=== PATIENT | female | born 1970 | race Caucasian/White ===

== ENCOUNTER 2022-09-26 10:59 | Outpatient (CLI) | payer BC, SELFPAY ==
[2022-09-26 11:15] LABS: Basophils Absolute Auto 0.08 K/mm3 (0.00-0.10); Basophils Percent Auto 1.1 % (0.0-1.0); Eosinophils Absolute Auto 0.11 K/mm3 (0.02-0.50); Eosinophils Percent Auto 1.5 % (1.0-6.0); Hematocrit 41.5 % (35.0-49.0); Immature Granulocyte Absolute 0.02 K/mm3 (0.00-0.00); Immature Granulocyte Percent A 0.3 % (0.0-0.0); Lymphocytes Absolute Auto 1.43 K/mm3 (1.10-4.50); Lymphocytes Percent Auto 19.8 % (18.0-42.0); Mean Corpuscular HGB Conc 33.7 g/dL (32.0-36.0); Mean Corpuscular Hemoglobin 30.8 pg (27.0-31.0); Mean Corpuscular Volume 91.2 fL (78.0-102.0); Mean Platelet Volume 9.1 fl (9.2-11.8); Monocytes Absolute Auto 0.33 K/mm3 (0.10-0.90); Monocytes Percent Auto 4.6 % (2.0-11.0); Neutrophils Absolute Auto 5.2 K/mm3 (1.7-7.2); Neutrophils Percent Auto 72.7 % (50.0-70.0); Platelet Count Result 349 K/mm3 (150-420); Red Blood Count 4.55 M/mm3 (4.20-5.40); Red Cell Distribution Width 12.7 % (11.6-14.4); White Blood Count 7.2 K/mm3 (4.8-10.8)
[2022-09-26 12:14] LABS: Free T4 Free Thyroxine 0.95 ng/dL (0.76-1.46); Iron 59 ug/dL (50-170); Magnesium 2.2 mg/dL (1.8-2.4); Thyroid Stimulating Hormone 0.54 uIU/mL (0.36-3.74); Vitamin B12 891 pg/mL (193-986)
[2022-09-30 19:51] LABS: Vitamin D 25 Hydroxy 17 ng/mL (30-100)
== END 2022-09-26 11:00 | disposition home or self-care (01) ==
PROVIDERS: PCP Nurse Practitioner Family; Visit Provider Nurse Practitioner Family
DX: R53.83 Other fatigue (principal); Z79.899 Other long term (current) drug therapy
CPT/HCPCS: 36415; 82306; 82607; 83540; 83735; 84439; 84443; 85025

== ENCOUNTER 2023-05-02 16:30 | Emergency (ER) | payer BC, SELFPAY ==
--- NOTE | ~2023-05-02 | XR_ITS ---
EXAMINATION: XR chest 1V portable DATE: 05/02/2023 17:26 INDICATION: Heart palpitations. Left arm numbness and tingling. TECHNIQUE: A single frontal view of the chest was obtained. COMPARISON: None. FINDINGS: There is mild atelectasis at left lung base. No pleural effusion or pneumothorax. The heart size is normal. IMPRESSION: 1. Mild atelectasis at left lung base. Reviewed, dictated and finalized at location E. REGISTER MECHANIC
[2023-05-02 16:32] VITALS: BP 176/90; PULSE 83; RESP 18; TEMP 37; O2SAT 97
[2023-05-02 16:35] VITALS: PULSE 85
--- NOTE | 2023-05-02 17:10 | ECG_ITS ---
Measurements Intervals [place] Rate: 85 P: 55 NC: 157 QRS: 53 QRSD: 87 T: 53 QT: 379 QTc: 452 Interpretive Statements SINUS RHYTHM POSSIBLE LEFT ATRIAL ENLARGEMENT INCOMPLETE RIGHT BUNDLE BRANCH BLOCK BORDERLINE T WAVE ABNORMALITY- ANTERIOR LEADS BORDERLINE ECG NO PREVIOUS ECG AVAILABLE FOR COMPARISON Electronically Signed On 05-02-2023 19:25:31 DIRECTOR OF CONVENTION SERVICES by Karson Luis D.O.
--- NOTE | 2023-05-02 17:12 | ED.CHESTPAIN ---
HPI - Chest Pain General Chief Complaint: Chest Pain Stated Complaint: chest palpations Time Seen by Provider: 05/02/23 17:05 Source: patient Mode of arrival: ambulatory Limitations: no limitations History of Present Illness HPI narrative: Patient is a 53-year-old female with significant past medical history presents today with chest pain. Patient has had palpitations and chest pain starting earlier this afternoon. She states that she has never had this in the past. She denies any history of cardiac problems. She does take hydrochlorothiazide for hypertension. She denies any other symptoms. She is not currently having any chest pain or the fluttering. MD complaint: chest pain Onset (ago): hour(s) Timing of current episode: now resolved Prior episodes: No Onset: other Pain location: substernal Pain radiation: none Severity: mild Pain scale (0-10): 1 Relieving factors: nothing Exacerbating factors: nothing Associated symptoms: nausea Risk Factors Coronary artery disease risk factors: hypertension Thoracic aortic dissection risk factors: none Related Data Allergies Allergy/AdvReac Type Severity Reaction Status Date / Time Penicillins Allergy Intermediate Rash Verified 05/02/23 08:26 Review of Systems Review of Systems: All systems reviewed & are unremarkable except as noted in HPI and below Constitutional: Constitutional: Reports no additional constitutional complaints Eyes: Eyes: Reports no additional eye complaints ENT: Reports system reviewed and no additional complaints, except as documented Cardiovascular: Cardiovascular: Reports no additional cardiovascular complaints Respiratory: Respiratory: Reports no additional respiratory complaints Gastrointestinal: Gastrointestinal: Reports no additional gastrointestinal complaints Genitourinary: Genitourinary: Reports no additional female genitourinary complaints Musculoskeletal: Musculoskeletal: Reports no additional musculoskeletal complaints Integumentary/Breasts: Skin/Breast: Reports system reviewed and no additional complaints, except as docu Neurologic: Reports system reviewed and no additional complaints, except as documented Psychiatric: Psychiatric: Reports no additional psychiatric complaints Endocrine: Endocrine: Reports no additional endocrine complaints Hematologic/Lymphatic: Hematologic/Lymphatic: Reports no additional hematologic/lymphatic complaints [facility] Past Medical History Medical History Depression Surgical History Surgical History History of appendectomy Hx of cholecystectomy Family History Family History Father , hyperlipidemia Hypertension Mother Hypertension Social History Social History Smoking status: Never smoker Alcohol intake: current Alcohol use details: socially Substance use: never Substance use type: does not use Lack of Transportation: No Lack of Food: Never True Current Housing: I Have Housing Concerned About Future Housing: No Difficulty Paying Gas/Electric Bills: No Difficulty Paying for Meds: No Currently Unemployed: No Education: Associate Degree Difficulty w/ Childcare or Family Care: No Living arrangements: with family Occupation/Education: occupation Additional occupation/education comments: works for [employer] Exam Const: General: healthy appearing Nutritional Appearance: well nourished Orientation/consciousness: patient oriented x3 HENMT: Head: normal to inspection Ears: external ears normal Face/Nose/Sinus: Normal external nose present Face and sinus: normal facial exam Mouth: Yes Normal oral and palatal mucosa present Eyes: Conjunctivae: conjunctivae normal Pupils: Equal, round and reactive pupils present EOM: EOMs intact bilateral
[2023-05-02 17:25] LABS: Basophils Absolute Auto 0.08 K/mm3 (0.00-0.10); Basophils Percent Auto 0.8 % (0.0-1.0); Eosinophils Absolute Auto 0.38 K/mm3 (0.02-0.50); Hematocrit 41.6 % (35.0-49.0); Hemoglobin 13.9 g/dL (12.0-15.0); Immature Granulocyte Absolute 0.04 K/mm3 (0.00-0.00); Immature Granulocyte Percent A 0.4 % (0.0-0.0); Lymphocytes Absolute Auto 1.77 K/mm3 (1.10-4.50); Lymphocytes Percent Auto 18.4 % (18.0-42.0); Mean Corpuscular HGB Conc 33.4 g/dL (32.0-36.0); Mean Corpuscular Hemoglobin 30.5 pg (27.0-31.0); Mean Corpuscular Volume 91.4 fL (78.0-102.0); Mean Platelet Volume 9.1 fl (9.2-11.8); Monocytes Absolute Auto 0.55 K/mm3 (0.10-0.90); Monocytes Percent Auto 5.7 % (2.0-11.0); Neutrophils Absolute Auto 6.8 K/mm3 (1.7-7.2); Neutrophils Percent Auto 70.7 % (50.0-70.0); Platelet Count Result 340 K/mm3 (150-420); Red Blood Count 4.55 M/mm3 (4.20-5.40); Red Cell Distribution Width 12.7 % (11.6-14.4); White Blood Count 9.6 K/mm3 (4.8-10.8)
[2023-05-02] MEDS: ASPIRIN 81 MG CHEWABLE TABLET 324 MG PO (17:41)
[2023-05-02 17:52] LABS: Partial Thromboplastin Time 29.6 SEC (23.90-30.70); Prothrombin Time 10.5 Seconds (9.50-12.10)
[2023-05-02 17:54] LABS: Alanine Aminotransferase 35 U/L (14-59); Albumin Level 3.7 g/dL (3.4-5.0); Alkaline Phosphatase 111 U/L (46-116); Anion Gap 1 mmol/L (8-16); Aspartate Amino Transferase 19 U/L (15-37); Bilirubin,Total 0.5 mg/dL (0.00-1.00); Blood Urea Nitrogen 12 mg/dL (7-18); Calcium 9.4 mg/dL (8.5-10.1); Carbon Dioxide 40 mmol/L (21-32); Chloride 103 mmol/L (98-108); Estimated CRCL calculation 58 ml/min; Estimated Glomerular Filt Rate > 60; Glucose 91 mg/dL (70-99); Lipase 34 U/L (16-77); NT Pro B Type Natriuretic Pept 44 pg/mL (0-125); Osmolality Calculated 297 mOsm/kg (285-295); Potassium 3.1 mmol/L (3.5-5.1); Sodium 144 mmol/L (136-145)
[2023-05-02 17:57] LABS: Troponin I 6.2 ng/L (0.00-60.4)
[2023-05-02 18:03] LABS: D Dimer 0.19 mg/L (0.19-0.50)
[2023-05-02] MEDS: POTASSIUM CHLORIDE 20 MEQ ER TABLET 40 MEQ PO (18:12)
[2023-05-02 18:29] VITALS: BP 131/70; PULSE 81; RESP 18; TEMP 36.4; O2SAT 98
[2023-05-02 18:40] VITALS: BP 151/86; PULSE 83; RESP 20; TEMP 36.7; O2SAT 98
[2023-05-02 18:53] VITALS: O2SAT 98
== END 2023-05-02 18:59 | disposition home or self-care (01) ==
PROVIDERS: Emergency Provider Family Medicine; PCP Nurse Practitioner Family
DX: R00.2 Palpitations (principal); I10 Essential (primary) hypertension; E78.5 Hyperlipidemia, unspecified; Z79.899 Other long term (current) drug therapy
CPT/HCPCS: 36415; 71045; 80053; 83690; 83880; 84484; 85025; 85380; 85610; 85730; 93005; 99284; A9270

== ENCOUNTER 2023-05-27 10:59 | Outpatient (CLI) | payer BC, SELFPAY ==
--- NOTE | ~2023-05-27 | XR_ITS ---
EXAM: XR lumbar spine 2-3V DATE: 05/27/2023 11:18 HISTORY: RT low back pain radiates down X 2 weeks, NKI . COMPARISON: None available. FINDINGS: Cholecystectomy clips. 5 nonrib-bearing lumbar-type vertebral bodies. Pedicles intact. 2 m m retrolistheses at L2-3 and L3-4. Trace anterolisthesis at L4-5. Vertebral body heights preserved. M ultilevel mild disc space narrowing and marginal osteophytosis. Multilevel mild facet sclerosis and h ypertrophy. Suggestion of a linear defect in the L5 pars articularis. No fracture or dislocation. IMPRESSION: Grade 1 retrolistheses at L2-3 and L3-4. Trace grade 1 anterolisthesis at L4-5. Multileve l mild degenerative disc disease and facet arthropathy. Possible pars defects at L5, consider oblique radiographs of the lumbar spine for confirmation. Reviewed, dictated and finalized at location K. [facility] IMPRESSION: Grade 1 retrolistheses at L2-3 and L3-4. Trace grade 1 anterolisthe sis at L4-5. Multilevel mild degenerative disc disease and facet arthropathy. P ossible pars defects at L5, consider oblique radiographs of the lumbar spine fo r confirmation.
== END 2023-05-27 11:00 | disposition home or self-care (01) ==
LOC: CHSLAB 11:02
PROVIDERS: PCP Nurse Practitioner Family; Visit Provider Nurse Practitioner Family
DX: M54.50 Low back pain, unspecified (principal); M43.16 Spondylolisthesis, lumbar region; M51.36 Other intervertebral disc degeneration, lumbar region
CPT/HCPCS: 72100

== ENCOUNTER 2023-05-30 10:26 | Outpatient (CLI) | payer BC, SELFPAY ==
--- NOTE | ~2023-05-30 | XR_ITS ---
EXAMINATION: XR lumbar spine 6V w bending DATE: 05/30/2023 11:02 INDICATION: Right-sided low back pain radiating to the right leg. TECHNIQUE: 7 views of lumbar spine including flexion and extension views were obtained. COMPARISON: Lumbar spine radiographs 05/27/2023 FINDINGS: There is 4 degrees dextrocurvature of lumbar spine. There is 3 mm retrolisthesis of L2 on L 3. Vertebral body heights are normal. There is no pars defect. There is mildly decreased disc height at L2-L3 and L4-L5. There is no abnormal motion with flexion or extension. There are endplate osteoph ytes at most levels. There is multilevel facet joint osteoarthritis, severe bilaterally at L4-L5 and L5-S1. IMPRESSION: 1. Mild lumbar spondylosis. Reviewed, dictated and finalized at location E. CEMENTER IMPRESSION: 1. Mild lumbar spondylosis.
== END 2023-05-30 10:27 | disposition home or self-care (01) ==
LOC: CHSIMG 10:27
PROVIDERS: PCP Family Medicine; Visit Provider Nurse Practitioner Family
DX: R93.7 Abnormal findings on diagnostic imaging of other parts of musculoskeletal system (principal); M54.50 Low back pain, unspecified; M43.06 Spondylolysis, lumbar region
CPT/HCPCS: 72114

== ENCOUNTER 2023-06-02 15:50 | Outpatient (RCR) | payer BC, SELFPAY ==
--- NOTE | 2023-06-02 17:06 | OPREHPOC ---
Outpatient Therapy Plan of Care This is a Multidisciplinary Plan of Care that may contain components documented by all disciplines (PT, OT, and ST.) PT Problem 1 PT Problem #1 Knowledge Deficit PT Goal 1 Goal Patient to demonstrate independence with HEP Target Visit 5 PT Problem 2 PT Problem #2 Pain PT Goal 1 Goal 1. Patient to report highest pain at 1/10 2. Patient to report sleep disturbance due to low back and hip pain Target Visit 10 PT Problem 3 PT Problem #3 Impaired Range of Motion PT Goal 1 Goal Patient to demonstrate 90 deg of R hip flexion to improve ability to sit for prolonged periods Target Visit 10 PT Problem 4 PT Problem #4 Impaired Strength PT Goal 1 Goal Patient to demonstrate 4+/5 strength of B LE to return to prolonged ambulation at PLOF Target Visit 10 PT Problem 5 PT Problem #5 Impaired Functional Mobil PT Goal 1 Target Visit 10
--- NOTE | 2023-06-02 17:06 | PTOPEVAL1 ---
Assessment and note entered by Nuha Richter DPT Evaluation Information Assessment Status Evaluation Diagnosis low back pain Onset 05/27/23 Subjective Information Patient reports she has had low back pain for the last 2 weeks with no injury. She reports pain starts at the low back and radiates to R hip and into groin. She reports pain has remained about the same since start. She reports she got an injection that did not help. She reports that she enjoys walking but is unable to now due to pain. She has also has difficulty with standing in one place, sitting at her desk and sleeping. She is to return to MD after PT. Reported Pain Level Pain Score 6,6: Self Report Assessment PT Clinical Summary Patient is a 53 year old female who presents to PT with low back and radiating pain to R LE. Patient demonstrates decreased B LE strength, decreased R hip mobility, and decreased lumbar mobility impairing her ability to ambulate prolonged ambulation, sitting at her desk for work, and standing to complete house hold tasks. Patient would benefit from skilled PT to address impairments and return to PLOF. Plan of Care Interventions Electrical Stimulation,Gait Training,Hot Pack/Cold Pack,Manual Therapy,Mechanical Traction,Neuro Re- education,Patient/Caregiver Educati,Therapeutic Activities,Therapeutic Exercise PT Services Indicated Yes Treatment Frequency and 2x weekly for 10 visits Duration These treatments will address the objective and functional deficits as defined above. The patient will be advanced safely and appropriately in order for the patient to progress towards his/her prior level of function. Additional exercises will be introduced and as well as a comprehensive home exercise program upon discharge, if needed, ?to ensure carryover of functional gains achieved in the clinic. This treatment plan has been reviewed and agreement upon by the patient.
--- NOTE | 2023-09-25 14:34 | PCPTNOTE ---
patient DC from PT and is following up with surgeon with regard to hip replacement
== END 2023-06-19 20:00 | disposition home or self-care (01) ==
LOC: CHSPT 15:50
PROVIDERS: PCP Family Medicine; Visit Provider Nurse Practitioner Family
DX: M54.50 Low back pain, unspecified (principal)
CPT/HCPCS: 97014; 97110; 97140; 97161; G0283

== ENCOUNTER 2024-04-06 09:49 | Outpatient (CLI) | payer BC, SELFPAY ==
--- NOTE | ~2024-04-06 | XR_ITS ---
EXAMINATION: XR chest 2V DATE: 04/06/2024 16:11 INDICATION: Chest pain. Palpitations. Wheezing. TECHNIQUE: Frontal and lateral views of the chest were obtained. COMPARISON: Chest single view 05/02/2023 FINDINGS: There is no pneumonia, pleural effusion, or pneumothorax. The heart size is normal. There a re surgical clips in the abdomen. IMPRESSION: 1. No acute cardiopulmonary disease. Reviewed, dictated and finalized at location A.
--- NOTE | 2024-04-06 10:00 | ECG_ITS ---
Test Date: 2024-04-06 10:09:37 Measurements Intervals [place] Rate: 82 P: 77 ID: [id number] QRS: 58 QRSD: 96 T: 78 QT: 390 QTc: 457 Interpretive Statements SINUS RHYTHM INCOMPLETE RIGHT BUNDLE BRANCH BLOCK [90+ ms QRS DURATION, TERMINAL R IN V1/V2, 40+ ms S IN I/aVL/V4/V5/V6] NONSPECIFIC ST & T-WAVE ABNORMALITY No previous ECG available for comparison Electronically Signed On 04-06-2024 11:58:21 CDT by Patrick Anderson M.D.
[2024-04-06 10:01] LABS: Basophils Absolute Auto 0.05 K/mm3 (0.00-0.10); Eosinophils Absolute Auto 0.19 K/mm3 (0.02-0.50); Eosinophils Percent Auto 3.9 % (1.0-6.0); Hematocrit 42.4 % (35.0-49.0); Hemoglobin 13.9 g/dL (12.0-15.0); Immature Granulocyte Absolute 0.03 K/mm3 (0.00-0.00); Immature Granulocyte Percent A 0.6 % (0.0-0.0); Lymphocytes Percent Auto 22.4 % (18.0-42.0); Mean Corpuscular HGB Conc 32.8 g/dL (32-36); Mean Corpuscular Hemoglobin 28.8 pg (27.0-31.0); Mean Corpuscular Volume 87.8 fL (78.0-102.0); Mean Platelet Volume 8.8 fl (9.2-11.8); Monocytes Percent Auto 6.1 % (2.0-11.0); Neutrophils Absolute Auto 3.25 K/mm3 (1.70-7.20); Platelet Count Result 302 K/mm3 (150-420); Red Blood Count 4.83 M/mm3 (4.20-5.40); Red Cell Distribution Width 13.2 % (11.6-14.4); White Blood Count 4.9 K/mm3 (4.8-10.8)
[2024-04-06 10:20] LABS: Alanine Aminotransferase 27 U/L (14-59); Albumin Level 3.6 g/dL (3.4-5.0); Alkaline Phosphatase 108 U/L (46-116); Anion Gap 4 mmol/L (4-12); Aspartate Amino Transferase 13 U/L (15-37); Bilirubin,Total 0.5 mg/dL (0.00-1.00); Blood Urea Nitrogen 11 mg/dL (7-18); Calcium 9.3 mg/dL (8.5-10.1); Carbon Dioxide 34 mmol/L (21-32); Chloride 104 mmol/L (98-108); Cholesterol 297 mg/dL (0-200); Estimated Glomerular Filt Rate > 60; Glucose 103 mg/dL (70-99); HDL Direct 65 mg/dL (40-60); LDL Cholesterol Calculated 204 mg/dL (<130); Osmolality Calculated 293 mOsm/kg (285-295); Potassium 3.7 mmol/L (3.5-5.1); Sodium 142 mmol/L (136-145); Triglycerides 142 mg/dL (0-150)
[2024-04-06 10:54] LABS: Thyroid Stimulating Hormone Reflex 0.75 u/IU/mL (0.36-3.74)
[2024-04-06 12:38] LABS: D Dimer 0.44 mg/L (0.19-0.50); INR 0.9; Prothrombin Time 10.2 Seconds (9.50-12.1)
== END 2024-04-06 09:50 | disposition home or self-care (01) ==
PROVIDERS: PCP Nurse Practitioner Family; Visit Provider Nurse Practitioner Family
DX: I10 Essential (primary) hypertension (principal); E78.5 Hyperlipidemia, unspecified; R07.9 Chest pain, unspecified; R00.2 Palpitations; I45.19 Other right bundle-branch block; R94.2 Abnormal results of pulmonary function studies
CPT/HCPCS: 36415; 71046; 80053; 80061; 84443; 84484; 85025; 85380; 85610; 93005

== ENCOUNTER 2024-04-21 05:11 | Emergency (ER) | payer BC, SELFPAY ==
[2024-04-21 05:11] VITALS: BP 163/90; PULSE 83; PULSE 90; RESP 16; RESP 20; TEMP 36.6; O2SAT 94; O2SAT 95
--- NOTE | 2024-04-21 05:23 | ED.ALLEREA ---
HPI - Allergic Reaction General Chief complaint: Allergic Reaction Stated complaint: allergic reaction Time Seen by Provider: 04/21/24 05:23 Source: patient Mode of arrival: ambulatory Limitations: no limitations History of Present Illness HPI narrative: patient is a 54-year-old female with known allergic reactions roughly every year around the same time. She believes it is lady bugs that are in abutted supply at her house and cause this reaction. No tongue swelling or throat swelling. She is having bilateral eye puffiness and swelling with chest congestion and shortness of breath. MD complaint: allergic reaction Onset (ago): day(s) (2) Exposure: insect bite Known history of allergy to: lady bug Symptoms: rash, itching and facial swelling Severity: similar to previous episodes Treatment prior to arrival: benadryl Previous Allergic Reaction History: other ( very similar event last year with puffiness around the eyes but did not have the shortness of breath event.) Related Data Home Medications Medication Instructions Recorded Confirmed celecoxib 100 mg capsule 100 mg PO DAILY 04/06/24 04/21/24 losartan 25 mg tablet 25 mg PO DAILY 04/06/24 04/21/24 Allergies Allergy/AdvReac Type Severity Reaction Status Date / Time Penicillins Allergy Intermediate Rash Verified 04/21/24 05:24 Review of Systems Review of Systems: All systems reviewed & are unremarkable except as noted in HPI and below Constitutional: Constitutional: Reports no additional constitutional complaints Eyes: Eyes: Reports no additional eye complaints ENT: Reports system reviewed and no additional complaints, except as documented Cardiovascular: Cardiovascular: Reports no additional cardiovascular complaints Respiratory: Respiratory: Reports no additional respiratory complaints Gastrointestinal: Gastrointestinal: Reports no additional gastrointestinal complaints Genitourinary: Genitourinary: Reports no additional female genitourinary complaints Musculoskeletal: Musculoskeletal: Reports no additional musculoskeletal complaints Integumentary/Breasts: Skin/Breast: Reports system reviewed and no additional complaints, except as docu Neurologic: Reports system reviewed and no additional complaints, except as documented Psychiatric: Psychiatric: Reports no additional psychiatric complaints Endocrine: Endocrine: Reports no additional endocrine complaints Hematologic/Lymphatic: Hematologic/Lymphatic: Reports no additional hematologic/lymphatic complaints Allergic/Immunologic: Allergic/Immunologic: Reports no additional allergic/immunologic complaints PMFSH Past Medical History Medical History Depression Surgical History Surgical History History of appendectomy Hx of cholecystectomy Family History Family History Father , hyperlipidemia Hypertension Mother Hypertension Social History Social History Smoking status: Never smoker Alcohol intake: current Alcohol use details: socially Substance use: never Substance use type: does not use Lack of Transportation: No Lack of Food: Never True Current Housing: I Have Housing Concerned About Future Housing: No Difficulty Paying Gas/Electric Bills: No Difficulty Paying for Meds: No Currently Unemployed: No Education: Associate Degree Difficulty w/ Childcare or Family Care: No Living arrangements: with family Occupation/Education: occupation Additional occupation/education comments: works for [employer] Exam Const: General: healthy appearing Nutritional Appearance: well nourished Orientation/consciousness: patient oriented x3 Limitations: no limitations HENMT: Head: normal to inspection Ears: external ears normal Face/Nose/Sinus: Normal external nose present Eyes: Conjunctivae: abnormal conjunctivae and conjunctival abnormality ( Scleral red injection) bilateral and diffuse Pupils: Equal, round and reactive pupils present EOM: EOMs intact bilaterally Neck: Neck: normal visual inspection Chest: Chest palpation & inspection: normal inspection of the chest Resp: Effort & Inspection: normal respiratory effort and not labored Auscultation: clear to auscultation bilaterally, no crackles, no rales, no rhonchi, no wheezes, breath sounds present and diminished lung sounds bilateral and diffuse Cardio: Rate: regular rate Rhythm: regular rhythm Heart sounds: no murmurs GI: Inspection: non-distended GI Palp: Yes Soft to palpation and No Tenderness to palpation present (GI) Auscultation: normal bowel sounds : General: Yes bladder normal to palpation Back/Spine/Pelvis: Back: no CVA tenderness Skin: General skin exam: normal color Rashes: no rashes Wounds: no wounds Other: Red puffy periorbital eyes /eyelids of allergic reaction Neuro: General: patient oriented x3 Cranial nerves: Yes Nystagmus not present Speech: normal speech Gait exam (Neuro): Normal gait present Extrem: General: normal to inspection Psych: Mental Status: mental status grossly normal Affect: normal affect Attitude: cooperative Course Vital Signs Vital signs: Vital Signs Temperature 36.6 C 04/21/24 05:11 Pulse Rate 90 04/21/24 05:11 Respiratory Rate 20 04/21/24 05:11 Blood Pressure 163/90 H 04/21/24 05:11 Pulse Oximetry 95 04/21/24 05:11 Oxygen Delivery Room Air 04/21/24 05:11 Temperature 36.6 C 04/21/24 05:11 Pulse Rate 83 04/21/24 05:32 Respiratory Rate 16 04/21/24 05:32 Blood Pressure 167/88 H 04/21/24 06:04 Pulse Oximetry 97 04/21/24 06:04 Oxygen Delivery Room Air 04/21/24 05:11 Oxygen Flow Rate 5 04/21/24 05:42 MDM - Allergic Reaction MDM Narrative Medical decision making narrative: patient is a 54-year-old female with allergic reaction causing bilateral eye conjunctivitis, bilateral daniel orbital swelling and erythema and bilateral chest congestion/ shortness of breath. She tried Benadryl without any changes. We will do Solu-Medrol IV at this time. Will do Maxitrol eyedrops. We will give her albuterol updraft. Discharge Plan Discharge Clinical Impression: Allergic reaction Qualifiers: Encounter type: initial encounter Qualified Code(s): T78.40XA - Allergy, unspecified, initial encounter Patient Disposition: Home, Self-Care Condition: Stable Instructions: General Allergic Reaction (ED) Prescriptions: New prednisone 20 mg tablet 40 mg PO DAILY 3 Days Qty: 6 0RF albuterol sulfate 90 mcg/actuation HFA aerosol inhaler 2 inh inhalation Q8H PRN (Reason: shortness of breath or wheezing) Qty: 6.7 0RF hydroxyzine HCl 25 mg tablet 25 mg PO Q8H PRN (Reason: rash) Qty: 20 0RF neomycin-polymyxin B-dexameth [Maxitrol] 3.5mg/mL-10,000 unit/mL-0.1 % drops,suspension 1 drp EACH EYE TID 7 Days Qty: 5 0RF No Action losartan 25 mg tablet 25 mg PO DAILY celecoxib 100 mg capsule 100 mg PO DAILY hydrochlorothiazide 25 mg tablet 25 mg PO DAILY Qty: 30 2RF Follow-up/Referrals: Diane Harper NP [Primary Care Provider] -
[2024-04-21 05:32] VITALS: PULSE 83; RESP 16; O2SAT 94
[2024-04-21] MEDS: ALBUTEROL SULFATE NEB 2.5 MG/3 ML INH INHALATION (05:32)
[2024-04-21] MEDS: NEOMYCIN/POLYMYXIN/HYDROCORT 7.5 ML EYE DROPS (*BKC) 2 DROP EACH EYE (05:39)
[2024-04-21] MEDS: methylPREDNISolone SOD SUCC 125 MG VIAL IV PUSH (05:39)
[2024-04-21] MEDS: hydrOXYzine HCL 25 MG TABLET PO (05:48)
[2024-04-21 06:04] VITALS: BP 167/88; O2SAT 97
--- NOTE | 2024-04-21 06:05 | PC.NURSE ---
Pt's bp elevated. ERP aware. No new orders.
== END 2024-04-21 06:35 | disposition home or self-care (01) ==
LOC: CHSED 05:46
PROVIDERS: Emergency Provider Emergency Medicine; PCP Nurse Practitioner Family
DX: T78.40XA Allergy, unspecified, initial encounter (principal); H10.9 Unspecified conjunctivitis; R06.02 Shortness of breath; R09.89 Other specified symptoms and signs involving the circulatory and respiratory systems; X58.XXXA Exposure to other specified factors, initial encounter
CPT/HCPCS: 96374; 99284; A9270; J2919

== ENCOUNTER 2025-02-18 17:59 | Emergency (ER) | payer BC, SELFPAY ==
[2025-02-18 18:10] VITALS: BP 150/73; PULSE 72; RESP 16; TEMP 36.8; O2SAT 98
--- NOTE | 2025-02-18 18:13 | ED.SKABFB ---
HPI - Skin/Abscess/Foreign Bdy General Chief complaint: Skin/Abscess/Foreign Body Stated complaint: RASH Time Seen by Provider: 02/18/25 18:13 Source: patient Mode of arrival: ambulatory Limitations: no limitations History of Present Illness HPI narrative: 54-year-old female presents with complaint of itchy rash to bilateral arms and legs for the past week. Started to left arm and has been spreading. Saw her net finisher 2 days ago and had ?biopsy ?sent was given clobetasol ointment that is not helping. Patient complains of itching, unable to sleep at night due to itching. All systems reviewed and negative except as noted above. Related Data Home Medications ?Medication ?Instructions ?Recorded ?Confirmed ?Last Taken ?Type carvedilol 6.25 mg tablet mg PO 05/14/24 11/29/24 Unknown History Allergies Allergy/AdvReac Type Severity Reaction Status Date / Time Penicillins Allergy Intermediate Rash Verified 02/18/25 18:19 PMFSH Past Medical History Medical History Depression Surgical History Surgical History History of appendectomy Hx of cholecystectomy Family History Family History Father , hyperlipidemia Hypertension Mother Hypertension Social History Social History Smoking status: Never smoker Alcohol intake: current Alcohol use details: socially Substance use: never Substance use type: does not use Lack of Transportation: No Lack of Food: Never True Current Housing: I Have Housing Concerned About Future Housing: No Difficulty Paying Gas/Electric Bills: No Difficulty Paying for Meds: No Currently Unemployed: No Education: Associate Degree Difficulty w/ Childcare or Family Care: No Living arrangements: with family Occupation/Education: occupation Additional occupation/education comments: works for [employer] Comments At time of signature, agree with nursing past medical, surgical, social and family history. There is no relevant family history pertinent to the presenting complaint. Exam Narrative: GENERAL: This is a well-nourished, well-developed patient, in no apparent distress. HEAD: normocephalic, atraumatic. EYES: PERRL. Sclera clear/white. Vision is grossly intact. EARS: External ears normal NOSE: External nose normal NECK: Neck supple, non-tender without lymphadenopathy, masses or thyromegaly. CARDIOVASCULAR: Regular rate and rhythm without murmurs, gallops, or rubs. RESPIRATORY: Clear to auscultation. Breath sounds equal bilaterally. No wheezes, rales, or rhonchi. SKIN: warm, Dry, intact, good texture and turgor. Erythematous vesicular rash to bilateral forearms, left knees and lower leg. No signs of infection. NEURO: awake, alert, and oriented to person, place and time. There were no obvious focal neurologic abnormalities. EXTREMITIES: No joint tenderness, effusion, or edema noted. Course Course Level of Care: Express Care Visit Vital Signs Vital signs: Vital Signs Temperature 36.8 C 02/18/25 18:10 Pulse Rate 72 02/18/25 18:10 Respiratory Rate 16 02/18/25 18:10 Blood Pressure 150/73 H 02/18/25 18:10 Pulse Oximetry 98 02/18/25 18:10 Temperature 36.8 C 02/18/25 18:10 Pulse Rate 72 02/18/25 18:10 Respiratory Rate 16 02/18/25 18:10 Blood Pressure 150/73 H 02/18/25 18:10 Pulse Oximetry 98 02/18/25 18:10 Reviewed MDM - Skin/Abscess/Foreign Bdy MDM Narrative Medical decision making narrative: Will treat patient with prednisone taper for poison joyce dermatitis. Has been taking Benadryl for itching and will continue. Will follow up with primary care physician as needed. Discharge Plan Discharge Clinical Impression: Dermatitis due to plants, including poison joyce, sumac, and oak Patient Disposition: Home Condition: Stable Instructions: Poison Joyce (ED) Additional Instructions: Take prednisone as prescribed until gone. May continue to use clobetasol as prescribed to lesions. Continue Benadryl as needed for itching. Follow-up with your primary care physician if not improving. Patient Language: Indonesian Prescriptions: New prednisone 10 mg tablet See Rx Instructions .ROUTE .COMPLEX Qty: 42 0RF Rx Instructions: Take 6 tablets for 2 days Take 5 tablets for 2 days Take 4 tablets for 2 days Take 3 tablets for 2 days Take 2 tablets for 2 days Take 1 tablet for 2 days No Action carvedilol 6.25 mg tablet PO lisinopril 10 mg tablet See Rx Instructions .ROUTE .COMPLEX Qty: 90 2RF Dose Instruction: TAKE ONE TABLET BY MOUTH DAILY Rx Instructions: TAKE ONE TABLET BY MOUTH DAILY atorvastatin 40 mg tablet See Rx Instructions .ROUTE .COMPLEX Qty: 90 2RF Dose Instruction: TAKE ONE TABLET BY MOUTH BEDTIME Rx Instructions: TAKE ONE TABLET BY MOUTH BEDTIME Follow-up/Referrals: PHYSICIAN,LAND INSPECTOR [Primary Care Provider, Internal Medicine] Time of Disposition: 18:23
== END 2025-02-18 18:27 | disposition home or self-care (01) ==
PROVIDERS: Emergency Provider Nurse Practitioner Family
DX: L23.7 Allergic contact dermatitis due to plants, except food (principal)
CPT/HCPCS: 99213; G0463

== ENCOUNTER 2025-04-25 01:35 | Day surgery (SDC) | payer BC, SELFPAY ==
[2025-04-21 13:29] VITALS: BMI 21.4
--- OUTSIDE RECORDS SUMMARY | 2025-04-25 01:40 | XMS_ITS | Clinical Summary ---
Author Organization [facility] Address [address] [place] [address] Care Team Providers Care Automotive Upholsterer Name Role Phone Lindsey Brand MD Unavailable Diane Miguel [facility] Primary Care Provider [phone] Allergies Active Allergy Reactions Criticality Noted Date Comments Penicillins Unknown,Swelling Medium 04/29/2019 Statins Myalgias 11/27/2023 Medications celecoxib (CELEBREX) 100 MG capsule Take 1 capsule (100 mg total) by mouth 2 (two) times daily. 08/01/2023 Active ezetimibe (ZETIA) 10 MG tablet Take 1 tablet (10 mg total) by mouth daily. 30 tablet 11 11/27/2023 Active losartan (COZAAR) 25 MG tablet Take 1 tablet (25 mg total) by mouth daily. 90 tablet 1 01/01/2024 Active hydroCHLOROthia zide (HYDRODIURIL) 25 MG tablet Take 1 tablet (25 mg total) by mouth every morning. 90 tablet 1 01/01/2024 Active Active Problems Problem Noted Date Diagnosed Date Abnormal EKG 04/30/2019 Essential hypertension 04/29/2019 Hyperlipidemia 04/29/2019 Palpitations Family History Medical History Relation Comments Aneurysm Father Hypertension Father Breast Cancer Maternal Aunt Relation Status Comments Father Alive Maternal Aunt Alive Mother Alive Son 1 Alive Son 2 Alive Social History Tobacco Use Types Packs/Day Years Used Date Smoking Tobacco: Never Smokeless Tobacco: Never Alcohol Use Standard Drinks/Week Comments Yes 3 (1 standard drink = 0.6 oz pur e alcohol) occasionally Comments Unknown Sex and Gender Information Value Date Recorded Sex Assigned at Not on file Legal Sex Female 11:03 PM CDT Gender Identity Not on file Sexual Orientation Not on file Occupation Industry Job Start Date Job End Date Not on file Not on file Not on file Not on file Last Filed Vital Signs Vital Sign Reading Time Taken Comments Blood Pressure 160/82 01/01/2024 1:32 PM CDT Pulse 79 01/01/2024 1:31 PM CDT Temperature - - Respiratory Rate 14 01/01/2024 1:31 PM CDT Oxygen Saturation 97% 01/01/2024 1:31 PM CDT Inhaled Oxygen Concentration - - Weight 66.2 kg (146 lb) 01/01/2024 1:31 PM CDT Height 162.6 cm (5' 4) 01/01/2024 1:31 PM CDT Body Mass Index 25.06 01/01/2024 1:31 PM CDT Plan of Treatment Health Maintenance Due Date Last Done Comments Cervical Cancer Screening Pa p Smear (Age 30 to 64) Every 3 Years 1968 Colorectal Cancer Screening Colonoscopy (10 Years) 1968 Annual Physical 1971 Hepatitis C 1986 DTaP, Tdap and Td Vaccines ( 1 - Tdap) 1987 Hepatitis B Vaccines (1 of 3 - 19+ 3-dose series) 1987 Cervical Cancer Screening Pa p with HPV Testing (Age 30 to 64) Every 5 Years 1998 Cervical Cancer Screening wi th HPV 1998 Pneumococcal Vaccine: 50+ Years (1 of 1 - PCV) 2018 Zoster Vaccines (1 of 2) 2018 COVID-19 Vaccine (2024-2 6 season) 2025 Influenza Adult (#1) 2025 04/12/2019, 04/10/2017 Mammogram Screening 03/09/2026 03/09/2024, 05/03/2021 Hepatitis A Vaccines Aged Out No long er eligible based on patient's age to complete this topic Meningococcal B Vaccine Aged Out No l onger eligible based on patient's age to complete this topic Meningococcal Vaccine Aged Out No kevin blanca eligible based on patient's age to complete this topic RSV Immunizations Under 20 Months Aged Out No longer eligible b ased on patient's age to complete this topic Procedures Procedure Name Priority Date/Time Associated Diagnosis Comments MG SCREENING W NITO NAHOMI DIGI Routine 03/09/2024 3:06 PM CDT Encounter for screening mammogram for malignant neoplasm of breast from Last 3 Months or Most Recently Relevant to Health Maintenance Results * MG SCREENING W NITO NAHOMI DIGI (03/09/2024 3:06 PM CDT) Anatomical Region Laterality Modality Breast Bilateral Mammography 03/09/2024 3:47 PM CDT Impressions 03/09/2024 3:47 PM CDT IMPRESSION: No suspicious change since the previous exams. Recommendation: 1: Routine Screening Bilateral in 1 Year Assessment: ACR BI-RADS 2 - BENIGN FINDING(S) Ordered By: DIANE MIGUEL Interpreted By: Toi Franco MD, 03/09/2024 3:47 PM Narrative 03/09/2024 3:47 PM CDT [address] [place] [id number] Examination: Digital screening mammogram with CAD. Clinical history: Asymptomatic patient presents for routine screening. Comparison: 05/03/2021, 03/30/2018, 01/15/2017, 06/09/2015. Technique: Bilateral digital mammograms. The exam was interpreted with the use of a computer-aided detection (CAD) system. Additional 3-D tomosynthesis images were acquired. Tissue density: The breast tissue contains scattered fibroglandular densities. Findings: The breast tissue contains scattered fibroglandular densities. Benign-appearing calcification noted. No suspicious mass, microcalcification or area of architectural distortion can be identified. From a mammographic standpoint, routine followup in one year would seem adequate. us Diane Miguel FORWARDER OPERATOR MAMMO Final Res ult from Last 3 Months or Most Recently Relevant to Health Maintenance Insurance [facility] Care Teams Automotive Upholsterer Relationship Specialty Start Date End Date Diane Miguel, HERBERT [address] [place] [address] PCP - General NURSE PRACTITIONER 11/13/23 Lindsey Brand MD [address] [place] [address] Consulting Physician CARDIOVASCULAR DISEASE 11/04/23
--- OUTSIDE RECORDS SUMMARY | 2025-04-25 01:40 | XMS_ITS | Clinical Summary ---
Author Organization [facility] Address [address] [place] [address] Care Team Providers Care Beam Dyer Recessed Vat Name Role Phone Diane Harper NP Primary Care Provider [phone] Allergies Active Allergy Reactions Criticality Noted Date Comments Penicillins Hives Medium 04/29/2019 Sulbactam And Other Inhibitor Analogues Hives High 06/06/2023 Medications celecoxib (CeleBREX) 100 mg capsule TAKE ONE CAPSULE BY MOUTH TWICE A DAY 60 capsule 1 12/16/2023 Active lisinopriL (PRINIVIL,ZESTR IL) 10 mg tablet Take 1 tablet (10 mg total) by mouth daily 04/26/2024 Active atorvastatin (LIPITOR) 40 mg tablet Take 1 tablet (40 mg total) by mouth daily 05/07/2024 Active carvediloL (COREG) 6.25 mg tablet Take 1 tablet (6.25 mg total) by mouth 2 (two) times a day with meals 180 tablet 3 05/10/2024 5 Active Active Problems Problem Noted Date Diagnosed Date Status post total hip replacement, right 024 Primary osteoarthritis of right hip 10/27/2023 Palpitations 06/27/2023 Abnormal findings on diagnos tic imaging of other parts of musculoskeletal system 05/30/2023 Low back pain, unspecified 05/27/2023 Abnormal EKG 04/30/2019 Essential hypertension 04/29/2019 Hyperlipidemia 04/29/2019 Encounters Date Type Department Care Team Description 02/11/2025 Telephone [facility] Orthoped[facility] and Sports Medicine [address] [place] [address] [address] [place] MD from Last 3 Months Immunizations Immunization Administration Dates Next Due Influenza, Quadrivalent, Kirstie l Culture-based MDCK, Preservative Free, Antibiotic Free, Intramuscular 04/10/2017 Influenza, Quadrivalent, Split, Intramuscular Surgical History Surgery Date Site/Laterality Comments APPENDECTOMY 06/23/2001 - 06/22/2002 CHOLECYSTECTOMY 06/23/2006 - 06/22/2007 JOINT REPLACEMENT HIP SURGERY Medical History Medical History Date Comments Hypertension Arthritis 04/23/23 Family History Medical History Relation Name Comments Arthritis Father Sotero Ernandez Hypertension Father Sotero Ernandez Arthritis Mother Tereza Ernandez Hearing loss Mother Tereza Ernandez Hypertension Mother Tereza Ernandez Anesthesia problems Neg Hx Malig Hyperthermia Neg Hx Pseudochol deficiency Neg Hx Relation Name Status Comments Father Sotero Ernandez Alive Mother Tereza Ernandez Alive Social History Tobacco Use Types Packs/Day Years Used Date Smoking Tobacco: Never Cigarettes Smokeless Tobacco: Never Tobacco Cessation:Counseling Given: Not Answered AUDIT-C Answer Date Recorded Q1: How often do you have a drink containing alcohol? 4 or more times a week 12/19/2023 Q2: How many drinks containi ng alcohol do you have on a typical day when you are drinking? 1 or 2 Q3: How often do you have si x or more drinks on one occasion? Never 12/19/2023 Personal Safety Answer Date Recorded Have you ever been in or are you currently in a harmful physical or emotional relationship or is someone making you feel afraid or unsafe? Denies 01/08/2024 Comments No Sex and Gender Information Value Date Recorded Sex Assigned at Not on file Legal Sex Female 12:38 AM SKEINS YARN EXAMINER Gender Identity Not on file Sexual Orientation Not on file Occupation Industry Job Start Date Job End Date [employer] Not on file Not on file Not on file Last Filed Vital Signs Vital Sign Reading Time Taken Comments Blood Pressure 122/82 06/07/2024 9:39 AM SKEINS YARN EXAMINER Pulse 68 06/07/2024 9:39 AM SKEINS YARN EXAMINER Temperature 36.6 C (97.9 F) 01/09/2024 6:30 AM CDT Respiratory Rate 18 01/09/2024 6:30 AM CDT Oxygen Saturation 98% 05/10/2024 2:41 PM SKEINS YARN EXAMINER Inhaled Oxygen Concentration - - Weight 67.6 kg (149 lb) 05/10/2024 2:41 PM SKEINS YARN EXAMINER Height 162.6 cm (5' 4) 05/10/2024 2:41 PM SKEINS YARN EXAMINER Body Mass Index 25.58 05/10/2024 2:41 PM SKEINS YARN EXAMINER Plan of Treatment Health Maintenance Due Date Last Done Comments Cervical Cancer Screening 1968 Colon Cancer Screening-Colonoscopy 1968 Depression Screening 1968 Hepatitis C Screening 1968 DTaP/Tdap/Td Vaccine (1 - Tdap) 1979 Hepatitis B Screening 1986 Regular Well Visit/Exam 18-64 1986 Zoster Vaccine (1 of 2) 2018 Covid-19 Vaccine (3 - season) 2025 11/12/2020, 10/22/2020 Influenza Vaccine (#1) 2025 04/12/2019, 2016 Breast Cancer Screening-Mammogram 03/09/2025 03/09/2024, 03/09/2024, 05/03/2021, Additional history exists Pneumococcal vaccine <65 Aged Out No longer eligible based on patient's age to complete this topic Medical Devices Implanted Type Area Heel Cementer Machine Device Identifier Shelf Expiration Date Model / Serial / Lot [employer] Shell Acetabular Trident Ii Tritanium D Od48mm Hip 3 Screw Hole Cluster Sterile 702-04-48d - [id number] Implanted:Qty: 1 on 01/08/2024 at [facility] Right: Hip [employer] 11/24/2028 702-04-48D / / [id number] [employer] Insert Trident 0deg 36mm 723-00-36d - [id number] Implanted:Qty: 1 on 01/08/2024 at [facility] Right: Hip [employer] 10/20/2028 723-00-36D / / [id number] [employer] V40 36mm Anatomic Hip +0mm Offset Taper Head Femoral [employer] Delta [id number] - [id number] Implanted:Qty: 1 on 01/08/2024 at [facility] Right: Hip [employer] 03/11/2028 [id number] / / [id number] [employer] Stem Insignia Hip Size 2 High Offset 4771-0765 - [id number] Implanted:Qty: 1 on 01/08/2024 at [facility] Right: Hip [employer] 10/18/2028 [id number] / / [id number] [place] [employer] [place] [employer] [place] Advance Direct[place] For more information, please contact: [phone] * Full Code (Latest Code Status on File) Date Activated Date Inactivated Comments 01/08/2024 10:26 AM 01/09/2024 3:22 PM Care Teams Beam Dyer Recessed Vat Relationship Specialty Start Date End Date Diane Harper NP [address] [place] [address] PCP - General Nurse Practitioner 05/10/24
--- OUTSIDE RECORDS SUMMARY | 2025-04-25 01:40 | XMS_ITS | Clinical Summary ---
Author Organization [facility] Address [address] [place] [address] Care Team Providers Care Tunnel Heading Supervisor Name Role Phone Unavailable Primary Care Provider Unavailabl e Source Comments [facility],non-owned Affiliates and Associated Physician Practices is amultiple site organization consisting of ambulatory clinics and hospital sitesin [place], [place], [place] and [place]. This disclosure is being madepursuant to the Care Everywhere program and may not contain all information available regarding this patient. Last updated 18.[facility] [employer] Social History Tobacco Use Types Packs/Day Years Used Date Smoking Tobacco: Never Assessed Comments Unknown Sex and Gender Information Value Date Recorded Sex Assigned at Not on file Legal Sex Female 3:18 PM STOCK SAW OPERATOR Gender Identity Not on file Sexual Orientation Not on file Plan of Treatment Health Maintenance Due Date Last Done Comments COLOGUARD (AGES 45-75) - COL ON CA SCREENING 1968 COLON MONITORING 1968 COLONOSCOPY - COLON CA SCREENING 1968 CT COLONOGRAPHY - COLON CA SCREENING 1968 Colorectal Cancer Screening 1968 FIT - COLON CA SCREENING 1968 FLEX SIG - COLON CA SCREENING 1968 LIPID TESTING 1968 MAMMOGRAM 1968 HIV SCREENING 1983 HEPATITIS C SCREENING 03/04/1986 DTAP/TDAP/TD VACCINES (1 - Tdap) 1987 HEPATITIS B VACCINE (1 of 3 - 19+ 3-dose series) 1987 PAP SMEAR 1989 PNEUMOCOCCAL VACCINE 50+ (1 of 1 - PCV) 2018 ZOSTER VACCINE (1 of 2) 2018 DEPRESSION SCREENING 06/23/2024 COVID-19 VACCINE ( - 2023-2 5 season) 2025 INFLUENZA VACCINE (#1) 2025 HIB VACCINE Aged Out No longer eligi ble based on patient's age to complete this topic HPV VACCINE Aged Out No longer eligi ble based on patient's age to complete this topic MENINGOCOCCAL (Group B) VACC INE SHARED DECISION-MAKING Aged Out No longer eligibl e based on patient's age to complete this topic MENINGOCOCCAL GROUPS A/C/Y/W VACCINE Aged Out No longer eligible b ased on patient's age to complete this topic Insurance [facility]
[2025-04-25 08:59] VITALS: BP 170/89; PULSE 70; RESP 18; TEMP 36.6; O2SAT 100
[2025-04-25] MEDS: LACTATED RINGERS 1,000 ML 150 ML IV CONT (09:12)
--- NOTE | 2025-04-25 09:32 | P.PNAN_ITS ---
Anes - Initial Pre Proc Eval Procedure: Operation Date: 04/25/25 10:00 Proposed Procedures p Screening Colonoscopy - Kwadwo Monroe DO Date/Time: 04/25/25 09:32 Surgeon: Kwadwo Monroe DO Pre Op Diagnosis: Neoplasm screening Patient Data Age: 55 Gender: F Height: 1.63 m Weight: 56.9 kg Last Vital Signs Temp 36.6 C 04/25/25 08:59 Pulse 70 04/25/25 08:59 Resp 18 04/25/25 08:59 BP 170/89 H 04/25/25 08:59 Pulse Ox 100 04/25/25 08:59 O2 Del Method Room Air 04/25/25 08:59 Allergies Allergy/AdvReac Type Severity Reaction Status Date / Time Penicillins Allergy Intermediate Rash Verified 04/25/25 08:57 Home Medications ?Medication ?Instructions ?Recorded ?Confirmed ?Type carvedilol 6.25 mg tablet 6.25 mg PO Q12H 05/14/2409/14 History atorvastatin 40 mg tablet See Rx Instructions .Route 0 10/29/24 04/25/25 Rx .COMPLEX #90 tabs lisinopril 10 mg tablet See Rx Instructions .Route 0 10/29/24 04/25/25 Rx .COMPLEX #90 tabs Patient hx anesthesia problems: none Family hx anesthesia problems: none Results Review: All pre-operative results and documents have been reviewed as part of the pre- operative evaluation. [facility] Past Medical History Medical History (Updated 04/25/25 @ 06:50 by Carlos Melissa DO) Anxiety Hyperlipidemia Hypertension Depression Surgical History Surgical History History of appendectomy Hx of cholecystectomy Family History Family History Father , hyperlipidemia Hypertension Mother Hypertension Social History Social History Smoking status: Former smoker Tobacco type: cigarettes Alcohol intake: current Drinks per week: 3 Alcohol use details: socially Substance use: never Substance use type: does not use Lack of Transportation: No Lack of Food: Never True Current Housing: I Have Housing Concerned About Future Housing: No Difficulty Paying Gas/Electric Bills: No Difficulty Paying for Meds: No Currently Unemployed: No Education: Associate Degree Difficulty w/ Childcare or Family Care: No Living arrangements: with family Occupation/Education: occupation Additional occupation/education comments: works for [email or web address] Spiritual care concerns: No Anes - Eval Final PreProcedure Day of Procedure 04/25/25 09:32 Patient weight: normal Heart: regular rate and rhythm Lungs: clear to auscultation and normal air movement Airway: Mallampati scale class II Neurological: alert and oriented Last oral intake: >/= 8 hours ASA classification: II Emergent: no Anesthetic plan: proceed Anesthesia type and monitoring: general GIVS and standard monitoring Results Review: All pre-operative results and documents have been reviewed as part of the pre- operative evaluation. Informed Consent: The patient's anesthetic plan and its attendant risks and benefits were discussed with the patient/family/POA. Questions were solicited and answers provided to the satisfaction of the patient/family/POA.
--- NOTE | 2025-04-25 10:15 | PM.IMHP ---
H&P: HPI History of Present Illness Date/Time: 04/25/25 10:15 Chief Complaint: family history of colon cancer Narrative: this is a 55-year-old woman who presents for her 1st colonoscopy. Her father recently of colon cancer. She denies any hematochezia or melena. Review of Systems Review of Systems: All systems reviewed & are unremarkable except as noted in HPI and below Constitutional: Constitutional: Denies chills, Denies fever(s), Denies headache(s) and Denies weight loss Eyes: Eyes: Denies change in vision ENT: Denies dizziness, Denies headache(s), Denies neck mass and Denies throat swelling Cardiovascular: Cardiovascular: Denies chest pain, Denies lightheadedness and Denies dyspnea Respiratory: Respiratory: Denies cough, Denies dyspnea and Denies wheezing Gastrointestinal: Gastrointestinal: Denies abdominal pain, Denies change in bowel habits, Denies nausea and Denies vomiting Genitourinary: Genitourinary: Denies hematuria and Denies dysuria Musculoskeletal: Musculoskeletal: Reports as per HPI Integumentary/Breasts: Skin/Breast: Reports as per HPI Neurologic: Denies dizziness and Denies headache(s) Allergic/Immunologic: Allergic/Immunologic: Denies throat swelling and Denies wheezing PMFSH Past Medical History Medical History (Updated 04/25/25 @ 10:16 by Kwadwo Monroe DO) Anxiety Hyperlipidemia Hypertension Depression Surgical History Surgical History History of appendectomy Hx of cholecystectomy Family History Family History Father , hyperlipidemia Hypertension Mother Hypertension Social History Social History Smoking status: Former smoker Tobacco type: cigarettes Alcohol intake: current Drinks per week: 3 Alcohol use details: socially Substance use: never Substance use type: does not use Lack of Transportation: No Lack of Food: Never True Current Housing: I Have Housing Concerned About Future Housing: No Difficulty Paying Gas/Electric Bills: No Difficulty Paying for Meds: No Currently Unemployed: No Education: Associate Degree Difficulty w/ Childcare or Family Care: No Living arrangements: with family Occupation/Education: occupation Additional occupation/education comments: works for [employer] Spiritual care concerns: No Meds Home Medications and Allergies Home Medications ?Medication ?Instructions ?Recorded ?Confirmed ?Type carvedilol 6.25 mg tablet 6.25 mg PO Q12H 05/14/24 04/25/25 History atorvastatin 40 mg tablet See Rx Instructions .Route 10/29/24 04/25/25 Rx .COMPLEX #90 tabs lisinopril 10 mg tablet See Rx Instructions .Route 10/29/24 04/25/25 Rx .COMPLEX #90 tabs Allergies Allergy/AdvReac Type Severity Reaction Status Date / Time Penicillins Allergy Intermediate Rash Verified 04/25/25 08:57 Vital Signs Vital Signs - 24 hr 04/25/25 08:59 Temperature 98 F Pulse Rate 70 Respiratory Rate 18 Blood Pressure 170/89 H Pulse Oximetry 100 Oxygen Delivery Room Air Exam Const: General: no acute distress and alert Orientation/consciousness: patient oriented x3 HENMT: Head: normocephalic and atraumatic Ears: hearing grossly normal bilaterally Face/Nose/Sinus: Normal nares present Mouth: Yes Normal oral and palatal mucosa present Eyes: Periorbital: periorbital findings normal Sclera: sclerae normal EOM: EOMs intact bilaterally Neck: Neck: normal visual inspection, no lymphadenopathy and trachea midline Chest: Chest palpation & inspection: normal inspection of the chest Resp: Effort & Inspection: normal respiratory effort Auscultation: clear to auscultation bilaterally Cardio: Jugular venous distension: no JVD Rate: regular rate Rhythm: regular rhythm Heart sounds: S1 normal heart sound present and S2 normal heart sound present Peripheral pulses: Peripheral pulses 2+ throughout GI: Inspection: normal to inspection GI Palp: Yes Soft to palpation, No Tenderness to palpation present (GI), No Guarding due to palpation present (GI) and No Rebound tenderness present Percussion: Yes normal to percussion Auscultation: normal bowel sounds : General: Yes no CVA tenderness Back/Spine/Pelvis: Back: no CVA tenderness Neuro: General: patient oriented x3, no focal motor deficits and CN's II-XI intact bilaterally Cognition (Neuro): normal cognition Speech: normal speech Motor exam (neuro): 5/5 motor strength present throughout Extrem: General: capillary refill normal and no clubbing, cyanosis or edema Assessment and Plan Assessment and plan (1) Family hx of colon cancer: Code(s): Z80.0 - Family history of malignant neoplasm of digestive organs Status: Acute Assessment and Plan: I have recommended colonoscopy. I have discussed the procedure, risks, benefits, and alternatives. Questions were answered. Patient is agreeable to proceed.
[2025-04-25 10:46] VITALS: BP 124/75; PULSE 74; RESP 23; O2SAT 100
[2025-04-25 10:56] VITALS: BP 126/67; PULSE 66; RESP 22; O2SAT 100
[2025-04-25 11:06] VITALS: BP 150/87; PULSE 63; RESP 15; O2SAT 100
== END 2025-04-25 11:13 | disposition home or self-care (01) ==
PROVIDERS: PCP Nurse Practitioner Family; Visit Provider Surgery
PROC: 0DJD8ZZ Inspection of Lower Intestinal Tract, Via Natural or Artificial Opening Endoscopic (ICD-10-PCS; CPT 45378; principal; 2025-04-25 10:00)
DX: Z12.11 Encounter for screening for malignant neoplasm of colon (principal); K57.30 Diverticulosis of large intestine without perforation or abscess without bleeding; Z80.0 Family history of malignant neoplasm of digestive organs; Z87.891 Personal history of nicotine dependence
CPT/HCPCS: 45378; J2704; J7120